=== PATIENT | female | born 1960 | race Caucasian/White ===

== ENCOUNTER → 2020-12-31 06:01 | Outpatient (CLI) | payer BC, SELFPAY ==
[2020-12-31 19:10] LABS: SARS-CoV-2 RNA PCR Negative
== END ==
PROVIDERS: Visit Provider Obstetrics & Gynecology
DX: Z01.812 Encounter for preprocedural laboratory examination (principal); Z20.822 Contact with and (suspected) exposure to COVID-19
CPT/HCPCS: C9803; U0003; U0005

== ENCOUNTER 2021-01-04 00:41 | Day surgery (SDC) | payer BC, SELFPAY ==
[2020-12-27 15:25] VITALS: BMI 22.0
--- NOTE | 2021-01-03 10:51 | P.PNAN_ITS ---
Anes - Initial Pre Proc Eval Procedure: Operation Date: 01/04/21 13:00 Proposed Procedures p Hysteroscopy Dilation and Curettage With Polypectomy - Tee Green MD Date/Time: 01/03/21 10:51 Surgeon: Tee Green MD Pre Op Diagnosis: Uterine Polyp, Post Menopausal Bleeding Patient Data Age: 60 Gender: F Height: 1.73 m Weight: 65.77 kg Allergies Allergy/AdvReac Type Severity Reaction Status Date / Time No Known Allergies Allergy Verified 01/04/21 12:20 Home Medications Medication Instructions Recorded Confirmed Type Multi Vitamin 1 tablet PO DAILY 12/27/20 12/27/20 History [place] 3 1 tablet PO DAILY 12/27/20 12/27/20 History estradiol 1 mg PO DAILY 12/27/20 12/27/20 History progesterone micronized 100 mg PO DAILY 12/27/20 12/27/20 History Patient hx anesthesia problems: none Family hx anesthesia problems: none PMFSH Surgical History Surgical History History of D&C History of knee surgery Social History Social History Smoking status: Never smoker Spiritual care concerns: No Anes - Eval Final PreProcedure Day of Procedure 01/03/21 10:51 Patient weight: normal Heart: regular rate and rhythm Lungs: clear to auscultation and normal air movement Airway: Mallampati scale class II Neurological: alert and oriented Last oral intake: >/= 8 hours ASA classification: I Emergent: no Anesthetic plan: proceed Anesthesia type and monitoring: general GIVS and standard monitoring Informed Consent: The patient's anesthetic plan and its attendant risks and benefits were discussed with the patient/family/POA. Questions were solicited and answers provided to the satisfaction of the patient/family/POA.
[2021-01-04 12:03] VITALS: BP 110/70; PULSE 56; RESP 18; TEMP 36.7; O2SAT 100
[2021-01-04] MEDS: LACTATED RINGERS 1,000 ML 30 ML IV CONT (12:06)
--- NOTE | 2021-01-04 12:09 | PM.IMHP ---
H&P: HPI History of Present Illness Date/Time: 01/04/21 12:09 Chief Complaint: Vaginal bleeding Narrative: 60 y/o with vaginal bleeding last year. Her doctor told her that her endometrial lining was thick. An EMB was negative at that time. She has now started to have cramping and bleeding. I have recommended we move on to hysteroscopy / D&C for diagnosis and treatment of her problem. Review of Systems Review of Systems: All systems reviewed & are unremarkable except as noted in HPI and below PMFSH Surgical History Surgical History History of D&C History of knee surgery Social History Social History Smoking status: Never smoker Spiritual care concerns: No Meds Home Medications and Allergies Home Medications Medication Instructions Recorded Confirmed Type Multi Vitamin 1 tablet PO DAILY 12/27/20 12/27/20 History [place] 3 1 tablet PO DAILY 12/27/20 12/27/20 History estradiol 1 mg PO DAILY 12/27/20 12/27/20 History progesterone micronized 100 mg PO DAILY 12/27/20 12/27/20 History Allergies Allergy/AdvReac Type Severity Reaction Status Date / Time No Known Allergies Allergy Verified 12/27/20 15:24 Vital Signs Vital Signs - 24 hr 01/04/21 12:03 Temperature 36.7 C Pulse Rate 56 L Respiratory Rate 18 Blood Pressure 110/70 Pulse Oximetry 100 Exam Const: Orientation/consciousness: patient oriented x3 Other: Well-developed, well-nourished female in no acute distress. Neck: Thyroid: thyroid normal Lymphatic: no lymphadenopathy noted (in neck, axilla or inguinal nodes) Resp: Effort & Inspection: normal respiratory effort Auscultation: clear to auscultation bilaterally Cardio: Rate: regular rate Rhythm: regular rhythm Heart sounds: S1 normal heart sound present and S2 normal heart sound present GI: Other: ABD: Soft, nontender, nondistended. No guarding or rebound tenderness. No hepatosplenomegaly. : General: Yes no CVA tenderness Other: External genitalia: normal female hair distribution, without lesion. Urethral meatus: no lesion, non prolapsed. Bladder: no mass, nontender Vagina: atrophic, without lesion or discharge. No cystocele or rectocele. Cervix: no lesion or discharge. Uterus: small, anteverted, freely mobile, nontender Adnexa: no mass or tenderness. Anus/perineum: no lesions, nontender Back/Spine/Pelvis: Back: no CVA tenderness Skin: General skin exam: normal color and no rashes or lesions noted Neuro: General: patient oriented x3 Extrem: Other: Extremities: nontender with no edema Psych: Mental Status: mental status grossly normal Affect: normal affect Assessment and Plan Assessment and plan (1) Postmenopausal vaginal bleeding: Code(s): N95.0 - Postmenopausal bleeding Status: Acute Assessment and Plan: Offered hysteroscopy with dilation and sharp curettage. She understands risks of surgery to include risks of anesthesia, risks of pain, infection, bleeding, blood products, thromboembolic phenomena and damage to adjacent structures such as bowel, bladder, ureters, blood vessels and nerves. She understands all these risks and elects to proceed with surgery. (2) Abnormal pelvic ultrasound: Code(s): R93.89 - Abnormal findings on diagnostic imaging of other specified body structures Status: Acute
--- NOTE | 2021-01-04 12:13 | WPDHPUPDATE1 ---
History and Physical Update Update Date/Time: 01/04/21 12:13 History and Physical has been reviewed, including an updated exam of the patient. There are NO changes in the patient's condition. Risks, benefits, and alternatives have been discussed and questions answered. Patient agrees to proceed with procedure.
[2021-01-04] MEDS: ACETAMINOPHEN 500 MG TABLET 1000 MG PO (12:18)
--- NOTE | 2021-01-04 13:52 | PM.PROC ---
Procedure Note - Detailed Date of procedure: 01/04/21 Pre-op diagnosis: Uterine Polyp, Post Menopausal Bleeding Postmenopausal bleeding Abnormal pelvic ultrasound Post-op diagnosis: same Procedure performed: Hysteroscopy Endometrial polypectomy Dilation and sharp curettage Description of procedure: The patient was taken to the operating room where she was prepared and draped in the usual sterile fashion in the dorsal lithotomy position. The bladder was drained with a red rubber catheter. A sterile speculum was placed into the vagina. The anterior lip of the cervix was grasped with single-tooth tenaculum. Ten mL of 1% lidocaine was administered in a paracervical block. The cervix was then gently dilated using Hegar dilators until an 8 mm dilator could be passed. Hysteroscopy was performed using sterile saline as a distention medium. Findings are as noted above. The polyp forceps were used to grasp and remove a small endometrial mass. Sharp curettage was then performed, and endometrial curettings were collected on a Telfa pad and passed off to be sent to pathology. A second look was taken with the hysteroscope and complete removal of the polyp / mass was confirmed. Hemostasis was excellent. Sponge, lap, needle and instrument counts were correct. The patient was awakened and taken to the recovery room in stable condition. I was present and scrubbed through the entire procedure. Implants: None Anesthesia: MAC and local (paracervical block with 1% lidocaine) Surgeon: Tee Green MD Estimated blood loss (mL): 5 Drains: No Packing: No Pathology: yes (endometrial curettings) Complications: None Condition: stable Disposition: PACU Findings: Small endometrial mass in posterior uterine fundal region. Both tubal ostia were seen. Endometrial mass noted to have been completely removed.
[2021-01-04 13:55] VITALS: BP 114/69; PULSE 58; RESP 16; O2SAT 95
[2021-01-04 14:15] VITALS: BP 109/74; PULSE 53; RESP 16
[2021-01-04] MEDS: ONDANSETRON INJ 4 MG/2 ML VIAL IV PUSH ×2 (14:19→15:21)
[2021-01-04 14:45] VITALS: BP 112/69; PULSE 50; RESP 16
[2021-01-04 15:15] VITALS: BP 126/75; PULSE 53; RESP 16
[2021-01-04 15:45] VITALS: BP 147/76; PULSE 50; RESP 18
[2021-01-04] MEDS: SCOPOLAMINE 1.5 MG PATCH TRANSDERM (15:55)
[2021-01-04] MEDS: diphenhydrAMINE HCl CAP 25 MG CAPSULE PO (15:55)
== END 2021-01-04 15:56 | disposition home or self-care (01) ==
PROVIDERS: Visit Provider Obstetrics & Gynecology
PROC: 0U5B8ZZ Destruction of Endometrium, Via Natural or Artificial Opening Endoscopic (ICD-10-PCS; CPT 58563; principal; 2021-01-04 13:00)
DX: N95.0 Postmenopausal bleeding (principal); N84.0 Polyp of corpus uteri
CPT/HCPCS: 58558; 88305; A9270; J2405; J2704; J3010; J7030; J7120